=== PATIENT | female | born 1955 | race Caucasian/White ===

== ENCOUNTER 2020-01-12 07:48 | Outpatient (CLI) | payer MEDICARE, OTHER ==
[2020-01-12 14:31] LABS: #Basophils 0.1 thou/uL (0.0-0.2); #Eosinphils 0.1 thou/uL (0.0-0.7); #Lymphocytes 1.6 thou/uL (1.20-3.40); #Monocytes 0.3 thou/uL (0.11-0.59); %Eosinophils 1.2 % (0.0-10.0); %Lymphocytes 32.2 % (21.0-51.0); %Neutrophils 59.6 % (42.0-75.0); Hemoglobin 14.1 g/dL (12.0-16.0); Mean Corpuscular HGB CONC 32.9 g/dL (32.0-36.0); Mean Corpuscular Hemoglobin 30.7 pg (27.0-31.0); Mean Corpuscular Volume 93.4 fL (78.0-98.0); Mean Platelet Volume 10.3 fL (7.4-10.4); Platelet Count 214 thou/uL (130-400); RBC Distribution Width 12.1 % (11.5-14.5)
[2020-01-12 14:44] LABS: Hemoglobin A1c 5.5 % (4.0-6.0)
[2020-01-12 14:49] LABS: Anion Gap 12 mmol/L (10-20); BUN (Urea Nitrogen) 15 mg/dL (9.8-20.1); Calc. Creatinine Clearance 0 mL/min (70-130); Calcium 9.7 mg/dL (7.8-10.44); Carbon Dioxide 27 mmol/L (23-31); Chloride 104 mmol/L (98-107); Estimated GFR-MDRD 70; Glucose 81 mg/dL (80-115); Potassium 4.4 mmol/L (3.5-5.1); Sodium 139 mmol/L (136-145)
[2020-01-13 13:41] LABS: SARS-CoV-2 MS2 Positive; SARS-CoV-2 N Gene Negative; SARS-CoV-2 S Gene Negative; SARS-CoV-2 by NAA Not Detected (NotDetected); SARS-CoV-2 orf1ab Negative
== END 2020-01-12 07:49 | disposition home or self-care (01) ==
LOC: LABBT 07:48
PROVIDERS: ATTEND Surgery
DX: Z01.812 Encounter for preprocedural laboratory examination (principal); Z20.828 Contact with and (suspected) exposure to other viral communicable diseases; K57.92 Diverticulitis of intestine, part unspecified, without perforation or abscess without bleeding
CPT/HCPCS: 80048; 83036; 85025; U0003; 87635

== ENCOUNTER 2020-01-12 11:15 | Inpatient (IN) | payer MEDICARE ==
[2020-01-12 15:28] VITALS: BMI 21.3
[2020-01-17] MEDS ORDERED: Lidocaine 1% (PF) 30 ML VIAL ONE (06:29)
[2020-01-17] MEDS ORDERED: Midazolam HCl 2 mg/2 ml Vial ONE (06:29)
[2020-01-17] MEDS ORDERED: Fentanyl 100 MCG/2 ML VIAL ONE ×2 (06:29→06:49)
[2020-01-17] MEDS ORDERED: Lidocaine 1% w/Epinephrine 1:100K 20 ML VIAL ONE (06:40)
[2020-01-17] MEDS ORDERED: Bupivacaine 0.25% HCL 30 ML VIAL ONE (06:40)
[2020-01-17] MEDS ORDERED: cefOXitin Sodium/Dextrose 2 GM/50 ML BAG ONE (06:44)
[2020-01-17] MEDS ORDERED: Ketorolac Tromethamine 30 MG/ML VIAL ONE (09:27)
[2020-01-17] MEDS ORDERED: Dexamethasone 20 MG/5 ML VIAL ONE (09:27)
[2020-01-17] MEDS ORDERED: Lidocaine 1% PF 5 ML VIAL ONE (09:27)
[2020-01-17] MEDS ORDERED: Ondansetron PF 4 MG/2 ML Vial ONE (09:27)
[2020-01-17] MEDS ORDERED: Glycopyrrolate 0.2 MG/ML 5 ML SYRINGE ONE (09:27)
[2020-01-17] MEDS ORDERED: Bupivacaine HCl 0.5%/Epinephrine 1:200,000/PF 30 ml Vial ONE (09:27)
[2020-01-17] MEDS ORDERED: PROPOFOL 200 MG/20 ML VIAL ONE (09:27)
[2020-01-17] MEDS ORDERED: PHENYLEPHRINE-NS 100 MCG/ML 10 ML SYRINGE ONE (09:27)
[2020-01-17] MEDS ORDERED: Rocuronium Bromide 10 MG/ML (10ML VIAL) ONE (09:27)
[2020-01-17] MEDS ORDERED: D5 1/2 NS w/20 mEq KCL 1,000 ML ONE (10:07)
[2020-01-17] MEDS ORDERED: hydrALAZINE 20 MG/ML VIAL ONE (10:19)
[2020-01-17] MEDS ORDERED: Meperidine HCl/PF 25 MG/ML VIAL ONE (10:33)
[2020-01-17] MEDS ORDERED: hydrALAZINE 20 MG/ML VIAL SLOW IVP PRN (11:08)
[2020-01-17] MEDS ORDERED: Promethazine HCl 25 MG/ML VIAL IM PRN (11:08)
[2020-01-17] MEDS ORDERED: Fentanyl 100 MCG/2 ML VIAL SLOW IVP PRN ×2 (11:08)
[2020-01-17] MEDS: D5 1/2 NS w/20 mEq KCL 1,000 ML IV SCH ×2 (12:25→22:28)
[2020-01-17] MEDS ORDERED: cefOXitin Sodium 1 GM in Sodium Chloride 0.9% 100 ML IVPB SCH (15:00)
[2020-01-17] MEDS: Ondansetron PF 4 MG/2 ML Vial IVP PRN (19:03)
[2020-01-17] MEDS ORDERED: Enoxaparin Sodium 40 MG/0.4 ML SYRINGE SC SCH (21:00)
[2020-01-17] MEDS: Famotidine 20 MG TAB PO SCH (21:04)
[2020-01-17] MEDS: Latanoprost 0.005% Ophth Soln 2.5 ml Bottle EA EYE SCH (21:05)
[2020-01-17] MEDS: Famotidine/PF 20 mg/2ml Vial SLOW IVP SCH (21:05)
[2020-01-17] MEDS ORDERED: cefOXitin Sodium/Dextrose,Iso 1 GM in Premix Bag 1 BAG IVPB SCH (23:00)
[2020-01-18] MEDS: traMADol HCl 50 MG TAB PO PRN ×2 (03:45→14:27)
[2020-01-18 05:36] LABS: #Lymphocytes 1.4 thou/uL (1.20-3.40); #Monocytes 0.8 thou/uL (0.11-0.59); %Basophils 0.1 % (0.0-1.0); %Eosinophils 0.2 % (0.0-10.0); %Lymphocytes 14.9 % (21.0-51.0); %Monocytes 8.5 % (0.0-10.0); %Neutrophils 76.3 % (42.0-75.0); Hemoglobin 10.7 g/dL (12.0-16.0); Mean Corpuscular HGB CONC 32.9 g/dL (32.0-36.0); Mean Corpuscular Hemoglobin 30.6 pg (27.0-31.0); Mean Corpuscular Volume 92.9 fL (78.0-98.0); Mean Platelet Volume 9.8 fL (7.4-10.4); Platelet Count 181 thou/uL (130-400); RBC Distribution Width 12.2 % (11.5-14.5); White Blood Cell (WBC) Count 9.2 thou/uL (4.8-10.8)
[2020-01-18 06:18] LABS: Anion Gap 13 mmol/L (10-20); BUN (Urea Nitrogen) 5 mg/dL (9.8-20.1); Calc. Creatinine Clearance 61 mL/min (70-130); Calcium 7.7 mg/dL (7.8-10.44); Carbon Dioxide 20 mmol/L (23-31); Chloride 106 mmol/L (98-107); Estimated GFR-MDRD 80; Glucose 133 mg/dL (80-115); Potassium 3.7 mmol/L (3.5-5.1); Sodium 135 mmol/L (136-145)
[2020-01-18] MEDS: Ondansetron PF 4 MG/2 ML Vial IVP PRN (06:50)
[2020-01-18] MEDS: Famotidine 20 MG TAB PO SCH ×2 (08:31→20:11)
[2020-01-18] MEDS: D5 1/2 NS w/20 mEq KCL 1,000 ML IV SCH ×3 (08:43→20:12)
--- NOTE | 2020-01-18 08:46 | PDOC.GSPN ---
Surgery Progress Note: Subj - Subjective Narrative: Patient is a 64 YO female with a PMH of diverticulitis who is post-op day 1 after a left colectomy due to refractory diverticulitis episodes. This morning, the patient complains of nausea, rectal bleeding, and abdominal pain. Her nausea began at 18:45 last night as she ambulated for the first time since surgery, and was associated with dry heaving. Later in the night, she had one more episode of ambulatory nausea, and one episode of ambulation without nausea. The nausea was alleviated with Zofran both times. Her rectal bleeding began during her second episode of ambulation last night, around 21:30. She has had 3 total episodes overnight, which she associated with either ambulation or incentive spirometry use. She describes a trickling, diarrhea-like sensation and sometimes notices blood clots in her diaper, but has no associated pain with the bleeding episodes. She has had constant abdominal pain since awaking from surgery. It began localized to her left lateral abdomen, and is currently diffuse throughout her lower abdomen. Her pain was managed with Fentanyl, which reduced her pain from a 6/10 to a 4/10. She ate jello at 12:00 yesterday after surgery, but has had nothing to eat since then. She does not have an appetite, but is attempting to eat and drink to stay hydrated, as she feels like her blood pressure is low. She "is game" to continue to try ambulating, and she successfully walked down the plata and back yesterday. She has not had any BMs, and she sometimes notices passing gas only with her bleeding episodes. Her main concern is her rectal bleeding, however, and does not want to do anything to aggravate this. Surgery Progress Note: Obj - Vital signs Vital signs: Vital Signs - Most Recent Temp Pulse Resp BP Pulse Ox 98.2 F 69 16 103/66 95 01/18/20 08:01 01/18/20 08:01 01/18/20 08:01/18/20 08:01/18/20 08:01 - Physical Exam General: moderate distress, no pain ENT: normal mucosa Neck: no josselin distention Cardiovascular: regular rate and rhythm, other (capillary refill under 2 sec) Respiratory: clear to auscultation, normal respiratory effort Abdomen: soft, nondistended, positive bowel sounds, tender (diffuse tenderness, greatest on LUQ and LLQ. Positive rebound tenderness.) Hernia: none Rectum: other (Collins blood trickling per rectum) Integumentary: other (normal skin turgor) Psychiatric: oriented to time, oriented to person, oriented to place, speech is normal Wound: dressing clean,dry,intact, healing well Surgery Progress Note: Results - Labs Result Diagrams: 01/18/20 05:09 01/18/20 05:09 Lab results: Laboratory Results - last 24 hr 01/18/20 01/18/20 05:09 05:09 WBC 9.2 RBC 3.50 L Hgb 10.7 L Hct 32.5 L MCV 92.9 MCH 30.6 MCHC 32.9 RDW 12.2 Plt Count 181 MPV 9.8 Neutrophils % 76.3 H Neutrophils % (Manual) Not Reportable Lymphocytes % 14.9 L Monocytes % 8.5 Eosinophils % 0.2 Basophils % 0.1 Neutrophils # 7.0 H Lymphocytes # 1.4 Monocytes # 0.8 H Eosinophils # 0.0 Basophils # 0.0 Sodium 135 L Potassium 3.7 Chloride 106 Carbon Dioxide 20 L Anion Gap 13 BUN 5 L Creatinine 0.73 Estimated GFR (MDRD) 80 Glucose 133 H Calcium 7.7 L Surgery Progress Note: A/P - Problem (1) Diverticulitis Current Visit: Yes Code(s): K57.92 - DVTRCLI OF INTEST, PART UNSP, W/O PERF OR ABSCESS W/O BLEED Status: Chronic (2) Rectal bleeding Current Visit: Yes Code(s): K62.5 - HEMORRHAGE OF ANUS AND RECTUM Status: Acute (3) Normocytic anemia Current Visit: Yes Code(s): D64.9 - ANEMIA, UNSPECIFIED Status: Acute (4) Nausea Current Visit: Yes Code(s): R11.0 - NAUSEA Status: Acute (5) Abdominal pain Current Visit: Yes Code(s): R10.9 - UNSPECIFIED ABDOMINAL PAIN Status: Acute - Plan Plan: Ms. Pratt is a 64 YO female with a PMH of refractory diverticulitis who is post- op day 1 after left colectomy. 1. Diverticulitis: Post-op day 1 for left colectomy -encourage eating and ambulation to stimulate bowel recovery 2. Rectal Bleeding: Post-Op complication--> Dark red blood per rectum indicative of older bleed, likely from staple sight -monitor bleeding with expected resolution by tomorrow -if not resolved, consult GI to scope and cauterize wound site 3. Normocytic Anemia: Anemia of Chronic Disease vs. Acute Blood loss -Order ferritin, free Fe, and TIBC to r/o ACD -Order CBC Qshift to monitor H/H -Monitor vitals Q4 to trend blood pressure, and IV 0.9% NS if Systolic BP <100 on 2 separate readings and symptomatic 4. Nausea: Post-Anesthesia vs. Post-Op Ileus -well controlled with Zofran PRN 5. Abdominal pain: Incision site -moderately controlled with Fentanyl -monitor vitals Q4 for pain
[2020-01-18] MEDS: Famotidine/PF 20 mg/2ml Vial SLOW IVP SCH ×2 (10:50→20:11)
[2020-01-18] MEDS ORDERED: traMADol HCl 50 MG TAB PO PRN (17:04)
[2020-01-18] MEDS ORDERED: Acetaminophen 325 MG TAB PO PRN (17:05)
--- NOTE | 2020-01-18 19:00 | OP ---
DATE OF PROCEDURE: 01/17/2020 PREOPERATIVE DIAGNOSIS: Chronic diverticulitis. POSTOPERATIVE DIAGNOSIS: Chronic diverticulitis. PROCEDURES PERFORMED: 1. Laparoscopic left colectomy with low pelvic anastomosis. 2. Splenic flexure mobilization, laparoscopic. ANESTHESIA: General. ESTIMATED BLOOD LOSS: Minimal. COMPLICATIONS: None. SPECIMEN: Left colon. FINDINGS: Chronic diverticulitis. INDICATIONS: The patient is a 64-year-old female who has had multiple bouts of diverticulitis, most recently was at the upper descending colon near the splenic flexure. She underwent mechanical and antibiotic bowel prep. DESCRIPTION OF PROCEDURE: On the day of surgery, the patient underwent preoperative TAP blocks by Anesthesia in the preoperative holding area. She was taken to the operating room and laid supine on the operating room table. After general anesthetic was obtained, a Sauceda was placed. She was placed in lithotomy position. Her abdomen and perineum and perianal areas all prepped and draped in a sterile fashion. Left subcostal 5-mm Optiview trocar placed in the usual fashion and high-flow pneumoperitoneum obtained. 5-mm ports were placed to the right umbilicus and suprapubic. A 12-mm port was placed in the right lower quadrant. A 5-mm port was placed in the left abdomen. She was placed in Trendelenburg position. Her small bowel was able to be moved out of the pelvis. The sigmoid colon was lifted up. There was evidence of chronic diverticular change. The mesentery was skeletonized from medial to lateral. The left ureter was found and excluded from the dissection. The inferior mesenteric artery was taken near its base using the LigaSure. The mesentery was taken down into the pelvis to the rectosigmoid junction, where a circumferential dissection of the upper rectum was performed. A laparoscopic stapling device was fired across this location, allowing the proximal colon then to be flipped up towards the splenic flexure. The left colon was mobilized along the white line of Toldt. The splenic flexure was mobilized in the usual fashion by taking down all the retroperitoneal attachments and taken the spleen off the distal transverse colon. The transverse colon was then able to be brought down into the pelvis under no tension. A 5-cm incision was made in the left lower quadrant and a muscle-splitting incision was made and the hand-assist port was placed. The proximal colon was able to be brought up out through this incision under no tension. Location was found for anastomosis. Colotomy was made just distal to this. The 31 anvil was passed proximally through the colotomy and its sharp pin brought out on the antimesenteric surface of the colon above. The colon was then stapled off just distal to this and this anvil was then placed back down into the abdominal cavity and the top of the hand-assist port was placed and the pneumoperitoneum was restored. Again, the small bowel was able to be brought out of the pelvis. The upper colon was brought down into the pelvis under no tension. The base for the 31 EEA was brought up through the anus and sharp pin from the stapler was brought out on the antimesenteric surface of the rectum below, connected to the anvil from above and tightened down into the green zone. There was no involvement of the vagina or posterior wall of the vagina in the staple line. The stapler was fired. Two good rings of tissue were obtained. The anastomosis was tested by air insufflation under saline without leakage. There was no bleeding in the abdomen. All port sites were infiltrated using local anesthetic. All ports were removed under camera visualization. Pneumoperitoneum was let down. The top of the hand-assist port was removed. The fascial defect at the hand-assist port site was closed, anterior fascia and posterior fascia using PDS suture. This incision was irrigated copiously using pulse evacuation. This incision was closed using 3-0 Vicryl, 4-0 Monocryl, and Dermabond. All other incisions were closed using 4-0 Monocryl and Dermabond. The patient was sent to Recovery in stable condition. All instrument counts, needle counts, and lap counts were correct. Job ID: [id number]
[2020-01-18] MEDS: Latanoprost 0.005% Ophth Soln 2.5 ml Bottle EA EYE SCH (20:11)
[2020-01-18] MEDS: HYDROcodone/Acetaminophen 7.5/325 mg Tablet PO PRN (20:11)
[2020-01-19 05:19] LABS: #Eosinphils 0.1 thou/uL (0.0-0.7); #Lymphocytes 1.3 thou/uL (1.20-3.40); #Monocytes 0.5 thou/uL (0.11-0.59); #Neutrophils 4.9 thou/uL (1.40-6.50); %Basophils 0.5 % (0.0-1.0); %Lymphocytes 18.7 % (21.0-51.0); %Monocytes 7.2 % (0.0-10.0); %Neutrophils 72.6 % (42.0-75.0); Hemoglobin 10.1 g/dL (12.0-16.0); Mean Corpuscular HGB CONC 32.7 g/dL (32.0-36.0); Mean Corpuscular Hemoglobin 31.1 pg (27.0-31.0); Mean Corpuscular Volume 95.2 fL (78.0-98.0); Mean Platelet Volume 9.7 fL (7.4-10.4); Platelet Count 168 thou/uL (130-400); RBC Distribution Width 12.2 % (11.5-14.5); Red Blood Cell (RBC) Count 3.24 mill/uL (4.20-5.40); White Blood Cell (WBC) Count 6.7 thou/uL (4.8-10.8)
[2020-01-19] MEDS: Famotidine 20 MG TAB PO SCH ×2 (08:32→20:20)
[2020-01-19] MEDS: HYDROcodone/Acetaminophen 7.5/325 mg Tablet PO PRN ×3 (08:33→20:20)
[2020-01-19] MEDS: Famotidine/PF 20 mg/2ml Vial SLOW IVP SCH ×2 (08:34→20:18)
[2020-01-19] MEDS: D5 1/2 NS w/20 mEq KCL 1,000 ML IV SCH (13:49)
--- NOTE | 2020-01-19 14:29 | PDOC.GSPN ---
Surgery Progress Note: Subj - Subjective Patient reports: tolerating liquids well (No nausea, voiding without difficulty) Surgery Progress Note: Obj - Vital signs Vital signs: Vital Signs - Most Recent Temp Pulse Resp BP Pulse Ox 98.3 F 74 16 118/64 95 01/19/20 11:05 01/19/20 11:05 01/19/20 11:05 01/19/20 11:05 01/19/20 12:00 - Physical Exam General: no distress Abdomen: soft, nondistended, positive bowel sounds, appropriately tender Wound: healing well Surgery Progress Note: Results - Labs Result Diagrams: 01/19/20 04:58 01/18/20 05:09 Lab results: Laboratory Results - last 24 hr 01/19/20 04:58 WBC 6.7 RBC 3.24 L Hgb 10.1 L Hct 30.8 L MCV 95.2 MCH 31.1 H MCHC 32.7 RDW 12.2 Plt Count 168 MPV 9.7 Neutrophils % 72.6 Lymphocytes % 18.7 L Monocytes % 7.2 Eosinophils % 1.0 Basophils % 0.5 Neutrophils # 4.9 Lymphocytes # 1.3 Monocytes # 0.5 Eosinophils # 0.1 Basophils # 0.0 Surgery Progress Note: A/P - Problem (1) Diverticulitis Current Visit: Yes Code(s): K57.92 - DVTRCLI OF INTEST, PART UNSP, W/O PERF OR ABSCESS W/O BLEED Status: Chronic - Plan Plan: POD 2 left colectomy -home tomorrow -cont full liquids -norco prn pain
[2020-01-19] MEDS: Latanoprost 0.005% Ophth Soln 2.5 ml Bottle EA EYE SCH (20:21)
[2020-01-20] MEDS: HYDROcodone/Acetaminophen 7.5/325 mg Tablet PO PRN ×2 (03:48→12:25)
[2020-01-20 07:39] VITALS: TEMP 97.7
[2020-01-20] MEDS: Famotidine 20 MG TAB PO SCH (07:42)
[2020-01-20] MEDS: Famotidine/PF 20 mg/2ml Vial SLOW IVP SCH (09:52)
[2020-01-20 12:27] VITALS: BP 134/80
== END 2020-01-20 12:45 | disposition home or self-care (01) | DRG 330 ==
LOC: SURG A 01-17 05:52 → SJJU 01-17 11:14
PROVIDERS: ADMIT Surgery; ATTEND Surgery
PROC: 0DBN4ZZ Excision of Sigmoid Colon, Percutaneous Endoscopic Approach (ICD-10-PCS; principal; 2020-01-18)
DX: K57.32 Diverticulitis of large intestine without perforation or abscess without bleeding (principal); K91.840 Postprocedural hemorrhage of a digestive system organ or structure following a digestive system procedure; K62.5 Hemorrhage of anus and rectum; D64.9 Anemia, unspecified; R11.0 Nausea; Y83.9 Surgical procedure, unspecified as the cause of abnormal reaction of the patient, or of later complication, without mention of misadventure at the time of the procedure; Z79.899 Other long term (current) drug therapy
CPT/HCPCS: 36415; 36416; 80048; 85025; 88307; J0360; J0670; J0694; J1100; J1650; J1885; J2001; J2175; J2250; J2405; J2704; J3010; J3480; J3490; S0020